=== PATIENT | male | born 1970 | race Two or more races ===

== ENCOUNTER 2018-01-17 20:19 | Emergency (ER) | payer OTHER ==
[~2018-01-17] VITALS: Ht 170.2 cm; Wt 68.0 kg
[2018-01-17] MEDS ORDERED: HYDR-4354 PO (20:47)
[2018-01-17] MEDS ORDERED: LEVE500T9 PO (20:47)
[2018-01-17] MEDS ORDERED: PHEN100C12 PO (20:47)
--- NOTE | 2018-01-17 20:57 | NUR ---
PATIENT WALKED IN FROM HOME WITH C/O SI WITH NO PLAN. PATIENT PLACED NEAR NURSES STATION FRO CLOSE OBSERVATION.
[2018-01-17 21:05] LABS: BASOPHILS # (AUTO) 0.1 K/uL (0.0-8.0); BASOPHILS % (AUTO) 1.1 % (0.0-2.0); EOSINOPHILS # (AUTO) 0.3 K/uL (0.0-0.7); EOSINOPHILS % (AUTO) 3.3 % (0.0-7.0); HEMATOCRIT 40.4 % (36.7-47.1); LYMPHOCYTES # (AUTO) 2.5 K/uL (20.0-40.0); LYMPHOCYTES % (AUTO) 30.5 % (20.5-51.5); MEAN CORPUSCULAR HEMOGLOBIN 31.2 uug (23.8-33.4); MEAN CORPUSCULAR HGB CONC 35 g/dL (32.5-36.3); MEAN CORPUSCULAR VOLUME 90.2 fL (73.0-96.2); MONOCYTES # (AUTO) 0.5 K/uL (2.0-10.0); MONOCYTES % (AUTO) 6.3 % (0.0-11.0); NEUTROPHILS # (AUTO) 4.8 K/uL (1.8-8.9); NEUTROPHILS % (AUTO) 58.8 % (38.5-71.5); PLATELET COUNT (AUTO) 257 K/uL (152-348); RED BLOOD CELL COUNT(AUTO) 4.48 MIL/uL (4.06-5.63); WHITE BLOOD COUNT (AUTO) 8.2 K/uL (3.6-10.2)
[2018-01-17 21:09] LABS: *BILIRUBIN,URIN NEGATIVE (NEGATIVE); *BLOOD, URINE NEGATIVE (NEGATIVE); *CLARITY,URINE CLEAR (CLEAR); *COLOR,URINE YELLOW (YELLOW); *KETONES,URINE NEGATIVE (NEGATIVE); *PROTEIN,URINE NEGATIVE (NEGATIVE); *UROBILINOGEN,URINE 0.2 E.U./dl (NORMAL); LEUKOCYTE ESTERASE ,URINE NEGATIVE (NEGATIVE); NITRITE, URINE NEGATIVE (NEGATIVE); UGLUCOSE NEGATIVE (NEGATIVE)
[2018-01-17 21:12] LABS: BACTERIA,URINE NONE SEEN /HPF (NONE SEEN); RBC,URINE 0-3 /HPF (0-3); SQUAMOUS EPITHELIAL CELL,UR NONE SEEN /HPF (NONE SEEN); WBC,URINE 0-3 /HPF (0-3)
[2018-01-17 21:14] LABS: CARBON DIOXIDE 31 mmol/L (21-32); CHLORIDE 105 mmol/L (98-107); CREATININE 1.3 mg/dL (0.6-1.3); GLUCOSE 89 mg/dL (74-106); UREA NITROGEN, BLOOD 13 mg/dL (7-18)
[2018-01-17 21:17] LABS: *AMPHETAMINE, URINE POSITIVE (NEGATIVE); *BARBITURATE, URINE NEGATIVE (NEGATIVE); *CANNABINOID, URINE POSITIVE (NEGATIVE); *COCCAINE, URINE NEGATIVE (NEGATIVE); *OPIATE, URINE NEGATIVE (NEGATIVE); *PHENCYCLIDINE SCREEN,URINE NEGATIVE (NEGATIVE)
[2018-01-17 21:20] LABS: ETHANOL 76 MG/DL (0-0)
[2018-01-17 21:21] LABS: ACETAMINOPHEN < 2.0 ug/mL (10-30); ALANINE AMINOTRANSFERASE 23 U/L (16-63); ALKALINE PHOSPHATASE 84 U/L (50-136); ASPARTATE AMINOTRANSFERASE 19 U/L (15-37); BILIRUBIN,DIRECT 0.1 mg/dL (0.0-0.2); BILIRUBIN,TOTAL 0.4 mg/dL (0.2-1.0); TOTAL PROTEIN, SERUM 7.8 g/dL (6.4-8.2)
--- NOTE | 2018-01-17 21:24 | NUR ---
DR. HERMOSILLO AT BEDSIDE FOR MSE.
--- NOTE | 2018-01-17 21:28 | NUR ---
SPOKE WITH VITO BARKER, WILL BE HERE WITHIN THE HOUR.
--- NOTE | 2018-01-17 22:00 | NUR ---
VITO BARKER HERE TO SEE PATIENT.
--- NOTE | 2018-01-17 22:20 | NUR ---
VITO BARKER AT BEDSIDE.
--- NOTE | 2018-01-18 | NUR ---
SPOKE WITH ALEXANDRA (INTAKE) AT [phone]. SHE STATES WILL CALL [facility] AND WILL CALL ME BACK.
--- NOTE | 2018-01-18 02:25 | NUR ---
RECEIVED CALL FROM ALEXANDRA (INTAKE), STATED THAT THEY WILL ACCEPT PATIENT BUT NO BED IS AVAILABLE UNTIL THE MORNING. I WAS THEN CONNECTED TO THE NURSE AT [facility] WITH CLARIFICATION OF LAB RESULTS: Lymphocytes # (Auto)2.5 K/uL (20.0-40.0) L. BEFORE ACCEPTING PATIENT, WOULD LIKE EXPLANATION OF THIS LAB RESULTS SINCE THIS SHOULD BE A CRITICAL LOW, ALSO REQUEST ANOTHER BLOOD ALCOHOL LEVEL. SPOKE WITH DR. HERMOSILLO AND REUESTED FOR HIM TO WRITE IN HIS NOTE REGARDING LAB FINDINGS AND TO ORDER REPEAT ALCOHOL LEVEL. WILL CALL ALEXANDRA ONCE RESULTS ARE AVAILABLE TO HAVE IT FAXED TO [facility].
[2018-01-18 03:15] LABS: ETHANOL < 3 MG/DL (0-0)
--- NOTE | 2018-01-18 03:32 | NUR ---
LAB RESULTS AND MD REPORT FAXED TO ALEXANDRA .
--- NOTE | 2018-01-18 05:30 | NUR ---
CALLED ALEXANDRA, SHE STATED THAT THEY NOTICED THAT ACCORDING TO PAPERWORK RECEIVED THAT PATIENT HAS A H/O OF SEIZURES AND IS A [employer] USER. STATED THAT THEY ARE STILL WORKING ON A BED BUT WILL OR WILL NOT ACCEPT HIM TO [facility] [address] [facility], STATED WILL CALL US AT 0730. CALLED VITO BARKER AT THIS TIME TO NOTIFY REGARDING THIS ISSUES, VITO BENJAMIN WILL CALL ALEXANDRA AT THIST TIME.
--- NOTE | 2018-01-18 05:45 | NUR ---
RECEIVED CALL BACK FROM VITO BARKER, HE SPOKE WITH ALEXANDRA AND PATIENT WILL BE ADMITTED TO [facility] AFTER 729. ACCEPTING FACILITY IS NOT STAFFED AT THIS TIME TO ACCEPT PATIENT. AWAITING CALL FROM ACCEPTING FACILITY FOR ROOM INFORMATION.
--- NOTE | 2018-01-18 07:14 | NUR ---
REPORT GIVEN TO GAUTAM VICKERS.
--- NOTE | 2018-01-18 07:55 | NUR ---
Received telephone call from Vivi from [facility] who stated they have accepted the patient and the patient may be transferred to their facility, EXT [id number] for report.
--- NOTE | 2018-01-18 08:08 | NUR ---
SBAR report given to Katt via telephone at [facility] ([phone]).
--- NOTE | 2018-01-18 09:20 | NUR ---
Patient discharged in stable conditon via taxi (with voucher) to [facility].
== END 2018-01-18 09:22 | disposition home or self-care (01) ==
LOC: ER 20:23
DX: F31.9 Bipolar disorder, unspecified (principal); J45.909 Unspecified asthma, uncomplicated; F17.200 Nicotine dependence, unspecified, uncomplicated; F12.10 Cannabis abuse, uncomplicated; F14.10 Cocaine abuse, uncomplicated; F11.10 Opioid abuse, uncomplicated; Z88.0 Allergy status to penicillin
CPT/HCPCS: 36415; 80048; 80076; 80307; 81001; 85025; 87536; 87806; 99285; G0480 ×3; G0481; A4663

== ENCOUNTER 2018-02-25 23:43 | Emergency (ER) | payer OTHER ==
[~2018-02-25] VITALS: Ht 170.2 cm; Wt 68.0 kg
[~2018-02-25 23:43] MED LIST: HYDR-4354 PO; LEVE500T9 PO; PHEN100C12 PO
--- NOTE | 2018-02-25 23:50 | NUR ---
Pt ambulated in ER with stable gait. Pt is AAO x 4. Pt stating that he is having suicidal ideations with vague plans of hurting himself. Pt is stating that he "wants to get shot by them (a gang) or to overdose". Pt denies verbal and visual hallucinations. Pulmonary Care Nurse called and notified for 1:1 sitter for safety. Suicide precautions implemented. Belongings taken from patient and placed at nursing station. Addendum: 02/26/18 at 0034 by YASH *Patient denies auditory and visual hallucinations.
--- NOTE | 2018-02-25 23:55 | NUR ---
Dr. Talavera at bedside for MSE.
--- NOTE | 2018-02-26 | NUR ---
Security at bedside for 1:1 safety.
[2018-02-26 00:31] LABS: BASOPHILS # (AUTO) 0.1 K/uL (0.0-8.0); BASOPHILS % (AUTO) 1.1 % (0.0-2.0); EOSINOPHILS # (AUTO) 0.4 K/uL (0.0-0.7); EOSINOPHILS % (AUTO) 3.8 % (0.0-7.0); HEMATOCRIT 39.8 % (36.7-47.1); HEMOGLOBIN 13.8 g/dL (12.5-16.3); LYMPHOCYTES # (AUTO) 2.6 K/uL (20.0-40.0); LYMPHOCYTES % (AUTO) 26.4 % (20.5-51.5); MEAN CORPUSCULAR HGB CONC 35 g/dL (32.5-36.3); MEAN CORPUSCULAR VOLUME 89.7 fL (73.0-96.2); MONOCYTES # (AUTO) 0.7 K/uL (2.0-10.0); MONOCYTES % (AUTO) 7.1 % (0.0-11.0); NEUTROPHILS # (AUTO) 6.1 K/uL (1.8-8.9); NEUTROPHILS % (AUTO) 61.6 % (38.5-71.5); PLATELET COUNT (AUTO) 252 K/uL (152-348); RED BLOOD CELL COUNT(AUTO) 4.44 MIL/uL (4.06-5.63); WHITE BLOOD COUNT (AUTO) 9.8 K/uL (3.6-10.2)
[2018-02-26 00:45] LABS: BILIRUBIN,DIRECT 0.1 mg/dL (0.0-0.2); BILIRUBIN,TOTAL 0.2 mg/dL (0.2-1.0); CREATININE 1.1 mg/dL (0.6-1.3); POTASSIUM 3.7 mmol/L (3.5-5.1); TOTAL PROTEIN, SERUM 7.5 g/dL (6.4-8.2)
--- NOTE | 2018-02-26 01:09 | NUR ---
Urine collected and sent to lab.
[2018-02-26 01:20] LABS: THYROID STIMULATING HORMONE 1.464 mIU/mL (0.358-3.740)
[2018-02-26 01:29] LABS: *AMPHETAMINE, URINE POSITIVE (NEGATIVE); *BARBITURATE, URINE NEGATIVE (NEGATIVE); *CANNABINOID, URINE POSITIVE (NEGATIVE); *COCCAINE, URINE NEGATIVE (NEGATIVE); *OPIATE, URINE NEGATIVE (NEGATIVE); *PHENCYCLIDINE SCREEN,URINE NEGATIVE (NEGATIVE)
--- NOTE | 2018-02-26 01:48 | NUR ---
Called Art for Psych. evaluation
--- NOTE | 2018-02-26 02:51 | NUR ---
Art arrived to ED for psych. eval.
--- NOTE | 2018-02-26 03:11 | NUR ---
per Art pt. is not suicidal, high on meth., suggests medication administration and for pt. to be d/c
--- NOTE | 2018-02-26 03:14 | NUR ---
1:1 sitter observation terminated,
[2018-02-26] MEDS ORDERED: OLANZAPINE 5 MG TABLET PO ONE (03:15)
[2018-02-26] MEDS ORDERED: OLANZAPINE 5 MG TABLET ONE (03:16)
--- NOTE | 2018-02-26 03:20 | NUR ---
Patient discharged to home in stable conditon. Written and verbal after care instructions given. Patient verbalizes understanding of instructions. Pt. d/c per MD, all belongings taken, ID band removed, no acute distress, left on bicycle held by security,
== END 2018-02-26 03:22 | disposition home or self-care (01) ==
LOC: ER 23:44
DX: F15.10 Other stimulant abuse, uncomplicated (principal); F22 Delusional disorders; F17.290 Nicotine dependence, other tobacco product, uncomplicated; F12.10 Cannabis abuse, uncomplicated; Z88.0 Allergy status to penicillin; Z79.891 Long term (current) use of opiate analgesic; Z79.899 Other long term (current) drug therapy
CPT/HCPCS: 36415; 80048; 80076; 80185; 80307; 84443; 85025; 93005; 99284; 99406; G0480; A4663

== ENCOUNTER 2021-01-16 22:53 | Emergency (ER) | payer BC, OTHER ==
[~2021-01-16] VITALS: Ht 170.2 cm; Wt 79.4 kg
[2021-01-16 23:40] LABS: *BILIRUBIN,URIN NEGATIVE (NEGATIVE); *BLOOD, URINE NEGATIVE (NEGATIVE); *CLARITY,URINE CLEAR (CLEAR); *COLOR,URINE YELLOW (YELLOW); *KETONES,URINE TRACE (NEGATIVE); *UROBILINOGEN,URINE 0.2 E.U./dl (NORMAL); LEUKOCYTE ESTERASE ,URINE NEGATIVE (NEGATIVE); NITRITE, URINE NEGATIVE (NEGATIVE); PH,URINE 5.5 (5.0-8.0); UGLUCOSE NEGATIVE (NEGATIVE)
[2021-01-16 23:53] LABS: HEMATOCRIT 40.6 % (36.7-47.1); MEAN CORPUSCULAR HEMOGLOBIN 30.5 uug (23.8-33.4); MEAN CORPUSCULAR VOLUME 89.6 fL (73.0-96.2); PLATELET COUNT (AUTO) 289 K/uL (152-348)
[2021-01-16 23:58] LABS: *AMPHETAMINE, URINE POSITIVE (NEGATIVE); *CANNABINOID, URINE POSITIVE (NEGATIVE); *COCCAINE, URINE NEGATIVE (NEGATIVE); *OPIATE, URINE POSITIVE (NEGATIVE); *PHENCYCLIDINE SCREEN,URINE NEGATIVE (NEGATIVE)
[2021-01-17] LABS: CARBON DIOXIDE 27 mmol/L (21-32); CHLORIDE 103 mmol/L (98-107); CREATININE 1.2 mg/dL (0.6-1.3); GLUCOSE 105 mg/dL (74-106); UREA NITROGEN, BLOOD 19 mg/dL (7-18)
[2021-01-17 00:01] LABS: BACTERIA,URINE NONE SEEN /HPF (NONE SEEN); SQUAMOUS EPITHELIAL CELL,UR NONE SEEN /HPF (NONE SEEN); WBC,URINE 0-3 /HPF (0-3)
[2021-01-17 00:06] LABS: PHENYTOIN (DILANTIN) < 0.5 ug/mL (10.0-20.0)
[2021-01-17 00:14] LABS: ALANINE AMINOTRANSFERASE 23 U/L (16-63); ALKALINE PHOSPHATASE 66 U/L (50-136); ASPARTATE AMINOTRANSFERASE 14 U/L (15-37); BILIRUBIN,DIRECT 0.1 mg/dL (0.0-0.2); BILIRUBIN,TOTAL 0.2 mg/dL (0.2-1.0); TOTAL PROTEIN, SERUM 7.5 g/dL (6.4-8.2)
--- NOTE | 2021-01-17 00:15 | NUR ---
MEDICALLY CLEARED BY DR BUCHANAN.
[2021-01-17 00:16] LABS: ACETAMINOPHEN < 2.0 ug/mL (10-30)
[2021-01-17 00:21] LABS: ETHANOL < 3 MG/DL (0-0)
--- NOTE | 2021-01-17 00:35 | NUR ---
CALLED [facility] AND SPOKE TO HOMERO WHO REQUESTED CLINICALS TO BE FAXED TO .
--- NOTE | 2021-01-17 02:02 | NUR ---
PT RESTING COMFORTABLY IN BED, EYES CLOSED.
--- NOTE | 2021-01-17 03:49 | NUR ---
MARLI FROM [facility] CALLED FOR CALL BACK #[phone], FAX #[phone]. WAITING ON VALPROIC ACID AND PHENYTOIN RESULTS TO COME IN. HAILEY FROM LAB STATED RESULTS WILL BE BACK IN ABOUT AN HOUR.
--- NOTE | 2021-01-17 04:22 | NUR ---
Patient is resting comfortably in bed with eyes closed. Breathing even and unlabored.
--- NOTE | 2021-01-17 06:23 | NUR ---
PT NOTED TO BE VELAZQUEZ, USING HIS PHONE. DENIES ANY PAIN/DISCOMFORT.
--- NOTE | 2021-01-17 06:49 | NUR ---
SPOKE WITH MARCO A FROM LAB, VALPROIC ACID AND DILANTIN LAB RESULTS WILL COME BACK BY NOON TODAY.
--- NOTE | 2021-01-17 06:53 | NUR ---
SPOKE ERLIN CALLES FROM [facility] PROVIDED WITH UPDATE REGARDING LABS.
[2021-01-17 07:48] LABS: VALPROIC ACID < 3 ug/mL (50-100)
--- NOTE | 2021-01-17 08:00 | NUR ---
After eatting breakfast, patient states "I not suicidal anymore, I am leaving." Patient refused to wait for ACI or sign AMA form. Patient states "I am just going to walk to [facility]."
== END 2021-01-17 08:16 | disposition left against medical advice (07) ==
LOC: ER 22:55
DX: F32.A Depression, unspecified (principal); R45.851 Suicidal ideations; Z59.00 Homelessness unspecified; F17.290 Nicotine dependence, other tobacco product, uncomplicated; Z20.822 Contact with and (suspected) exposure to COVID-19; Z53.29 Procedure and treatment not carried out because of patient's decision for other reasons; G40.909 Epilepsy, unspecified, not intractable, without status epilepticus; Z79.899 Other long term (current) drug therapy; F11.10 Opioid abuse, uncomplicated; F15.10 Other stimulant abuse, uncomplicated; F12.10 Cannabis abuse, uncomplicated
CPT/HCPCS: 36415; 80164; 85025; A4663; G0480

== ENCOUNTER 2021-01-18 12:18 | Emergency (ER) | payer BC, OTHER ==
[~2021-01-18] VITALS: Ht 170.2 cm; Wt 79.4 kg
--- NOTE | 2021-01-18 12:35 | NUR ---
Spoke with Addie ([phone]) in intake dept at [facility]. Pt's information faxed as requested (fax# [phone]). spoke with her as well.
--- NOTE | 2021-01-18 15:29 | NUR ---
Spoke with Addie at [facility] who requested repeat Dilantin level because it was low when it was checked on 01/16 during pt's last visit here.
--- NOTE | 2021-01-18 15:30 | NUR ---
Dilantin level ordered by .
--- NOTE | 2021-01-18 17:00 | NUR ---
Patient is resting comfortably in bed with eyes closed
[2021-01-18] MEDS ORDERED: PHENYTOIN SODIUM IV 1,000 MG in IV NORMAL SALINE 100 ML IV ONE (18:30)
--- NOTE | 2021-01-18 18:40 | NUR ---
PATIENT IN BED WATCHING TV. NOT IN ANY DISTRESS
--- NOTE | 2021-01-18 19:02 | NUR ---
RECEIVED REPORT FROM CANDACE. PT NOTED TO BE IN BED RESTING, IN NO DISTRESS, DENIES ANY PAIN/DISCOMFORT. NO N/V/D.
--- NOTE | 2021-01-18 21:05 | NUR ---
MELITA FROM [facility] RETURNED CALL, PT [facility]: [phone].
--- NOTE | 2021-01-18 21:08 | NUR ---
GAVE REPORT TO FROY FROM [facility].
--- NOTE | 2021-01-18 21:09 | NUR ---
CALLED [facility] SPOKE WITH [facility], AMBULANCE TRANSPORTATION ARRANGED WITH ETA OF 1 HOUR.
--- NOTE | 2021-01-18 22:02 | NUR ---
OFFERED PT DINNER LUNCH TRAY.
--- NOTE | 2021-01-18 22:29 | NUR ---
SPOKE WITH PEYMAN FROM [facility] PROVIDED ANOTHER ETA OF 45 MIN TO 1 HOUR.
--- NOTE | 2021-01-18 22:50 | NUR ---
UNIT [address] FROM [facility] AT BEDSIDE TO TRANSPORT PT TO [facility].
--- NOTE | 2021-01-18 23:00 | NUR ---
Patient Tranfers to outside Facility Physician: Tom and Dr. Powell Location: [facility] Room 219
== END 2021-01-18 23:04 ==
LOC: ER 12:21
DX: R45.851 Suicidal ideations (principal); G40.909 Epilepsy, unspecified, not intractable, without status epilepticus; F31.9 Bipolar disorder, unspecified; Z59.00 Homelessness unspecified; Z88.0 Allergy status to penicillin; Z79.899 Other long term (current) drug therapy
CPT/HCPCS: 36415; 80185; 96365; 99284; J1165; A4663; J3490